=== PATIENT | female | born 1975 | race African-American/Black ===

== ENCOUNTER 2017-05-03 08:16 | Emergency (ER) | payer OTHER ==
[~2017-05-03] VITALS: Wt 86.5 kg
[~2017-05-03 08:16] MED LIST: ACET325T33 PO; CEPH-443 PO; HYDR-3498 PO; ONDA4TAB14 PO; SULF473O4 PO
[2017-05-03] MEDS ORDERED: ONDANSETRON 4 MG INJ IV STA (08:32)
[2017-05-03] MEDS ORDERED: SOD CHLORIDE 0.9% 1,000 ML IV STA (08:32)
[2017-05-03] MEDS ORDERED: KETOROLAC 30 MG INJ IV STA (08:32)
--- NOTE | 2017-05-03 09:12 | RADRPT ---
PROCEDURE: Right upper quadrant abdominal ultrasound. CLINICAL INDICATION: Abdominal pain TECHNIQUE: Hussein scale and color doppler ultrasound images of the right upper quadrant of the abdom en. COMPARISON: CT abdomen pelvis 07/05/2016 FINDINGS: Pancreas: Visualized portions appear of normal echogenicity without focal lesions. Liver: Morphology:Normal in size. Contour:Normal, no evidence of nodularity. Echogenicity: Normal. Focal lesions:None. Main portal vein: Patent with hepatopetal flow. Biliary System: Gallbladder wall: Normal thickness. Gallstones: None. Intrahepatic bile ducts: Normal caliber. Common bile duct diameter (mm): 3.3 Kidneys: Right length (cm) : 10.6 Right cortical thickness: Normal. Echogenicity: Normal. Hydronephrosis: None. Renal calculi: None. Focal lesions: None. Free fluid/ascites: None. Abdominal aorta: Normal caliber of the visualized segments. Other findings: None. IMPRESSION: Normal gallbladder without gallstones. Normal examination. RPTAT: AADD .Tyson Montano MD, MD Date Time Electronically viewed and signed by .Tyson Montano MD, on 05/03/2017 09:11 .B/
[2017-05-03 09:22] LABS: BASOPHILS % 0.8 % (0.0-2.0); EOSINOPHILS # 0.2 10^3/ul (0.0-0.5); EOSINOPHILS % 3.8 % (0.0-7.0); HEMOGLOBIN 10.7 g/dl (12.0-16.0); LYMPHOCYTES # 1.9 10^3/ul (0.8-2.9); LYMPHOCYTES % 40.2 % (15.0-51.0); MEAN CORPUSCULAR HEMOGLOBIN 23.9 pg (29.0-33.0); MEAN CORPUSCULAR HGB CONC 32.4 g/dl (32.0-37.0); MEAN CORPUSCULAR VOLUME 73.8 fl (82.0-101.0); MEAN PLATELET VOLUME 11.9 fl (7.4-10.4); MONOCYTE # 0.4 10^3/ul (0.3-0.9); MONOCYTES % 7.6 % (0.0-11.0); NEUTROPHIL # 2.3 10^3/ul (1.6-7.5); NEUTROPHILS % 47.4 % (39.0-77.0); PLATELET COUNT 198 10^3/UL (140-415); RED BLOOD COUNT 4.47 10^6/ul (4.20-5.40); RED CELL DISTRIBUTION WIDTH 15.5 % (11.5-14.5); WHITE BLOOD COUNT 4.8 10^3/ul (4.8-10.8)
[2017-05-03 09:34] LABS: ADD UMIC NO; UR ASCORBIC ACID NEGATIVE (NEGATIVE); UR BILIRUBIN (Dip) NEGATIVE (NEGATIVE); UR BLOOD (Dip) NEGATIVE (NEGATIVE); UR CLARITY CLEAR (CLEAR); UR COLOR COLORLESS (YELLOW); UR GLUCOSE (Dip) NEGATIVE (NEGATIVE); UR KETONES (Dip) NEGATIVE (NEGATIVE); UR LEUKOCYTE ESTERASE (Dip) NEGATIVE Leu/ul (NEGATIVE); UR NITRITE (Dip) NEGATIVE (NEGATIVE); UR SPECIFIC GRAVITY (Dip) 1.003 (1.003-1.030); UR TOTAL PROTEIN (Dip) NEGATIVE (NEGATIVE); UR UROBILINOGEN (Dip) NEGATIVE (NEGATIVE)
[2017-05-03 09:46] LABS: ALBUMIN 4.3 g/dl (3.3-4.9); ALBUMIN/GLOBULIN RATIO 1.34; BILIRUBIN,INDIRECT 0.4 mg/dl (0-1.1); BILIRUBIN,TOTAL 0.4 mg/dl (0.2-1.3); CALCIUM 9.5 mg/dl (8.4-10.2); CREATININE 0.87 mg/dl (0.44-1.00); POTASSIUM 3.8 mmol/L (3.5-5.1); TOTAL PROTEIN 7.5 g/dl (6.1-8.1)
[2017-05-03] MEDS ORDERED: morphine 4 MG/ML VIAL IV STA (10:17)
[2017-05-03] MEDS ORDERED: IOHEXOL 300MG/ML 150 ML BTL ONE (10:57)
[2017-05-03] MEDS ORDERED: SOD CHLORIDE 0.9% 100 ML ONE (10:57)
--- NOTE | 2017-05-03 10:59 | RADRPT ---
PROCEDURE: CT Abdomen and Pelvis with Contrast CLINICAL INDICATION: Mid abdominal pain TECHNIQUE: Transaxial images were obtained through the abdomen and pelvis on a multi-slice scanner following the intravenous administration of 100 ml of Omnipaque-300 contrast. No oral contrast had previously been given. Sagittal and coronal re-formations were subsequently reconstructed. One or more of the following dose reduction techniques were used: - Automated exposure control. - Adjustment of the mA and/or kV according to patient size. - Use of iterative reconstruction technique. Radiation dose: CTDIvol = 17.59 mGy; DLP = 992.85 mGy-cm. COMPARISON: 07/05/2016 FINDINGS: Lung bases: The visualized lung bases appear unremarkable. Liver: Normal in size and in attenuation. There is no focal lesion. The hepatic veins and portal vei ns appear patent. Gallbladder: The wall is not thickened. No radiopaque stones are identified. Bile ducts: The intra and extrahepatic bile ducts are normal in caliber. Pancreas: Appears normal with no mass or inflammation evident. Spleen: Normal in size with no focal lesion. Adrenals: Normal with no mass identified. Kidneys, ureters and bladder: The kidneys are unremarkable except for mild dilatation of to left mid pole calyces. No mass or nephrolith is identified. The ureters are not dilated and no ureterolith i s evident. The bladder appears unremarkable. Reproductive organs: The uterus is midline. There is a 3.6 x 2.4 x 2.3 cm right adnexal cyst. Phlebo liths are seen in the pelvis. Stomach, bowel, and mesentery: The stomach and bowel appear unremarkable without evidence of obstruc tion or inflammation. Appendix: A normal vermiform appendix is evident. Peritoneum: There is a trace of free intraperitoneal fluid seen in the cul-de-sac. No free air is id entified. Aorta: Normal in caliber with no aneurysmal dilatation. IVC: Unremarkable. Lymph nodes: No pathologically enlarged nodes are identified. Osseous structures: An 8 mm cyst is again seen within the lateral right supra-acetabular ilium. IMPRESSION: 1. Since the previous CT of 07/05/2016, two minimally dilated left mid pole renal calyces are again evident but there is no nephrolith, ureteral dilatation, ureterolith, or bladder pathology evident. 2. Again there is no evidence of bowel obstruction or inflammation with a normal-appearing vermifor m appendix. 3. Interval development of a 3.6 x 2.4 x 2.3 cm right adnexal cyst along with a trace amount of karen e intraperitoneal fluid seen in the cul-de-sac. No free air is identified. 4. An 8 mm cyst is again seen within the lateral right supra-acetabular ilium. 5. Otherwise, stable and unremarkable CT scan of the abdomen and pelvis. Physician Ria Date Time Electronically viewed and signed by Physician Ria on 05/03/2017 10:59 RH/
[2017-05-03] MEDS ORDERED: FAMO-96 PO (11:09)
[2017-05-03] MEDS ORDERED: HYDR-906 PO (11:09)
[2017-05-03 11:56] VITALS: BP 117/66; PULSE 61; RESP 18; TEMP 98.5
--- NOTE | 2017-06-03 19:32 | ERD ---
ER Documentation Chief Complaint Chief Complaint HAS AP HX OF CHOLELITHIASIS HPI 41-year-old female complaining of right upper quadrant pain 1 week. Patient denies chest pain or shortness of breath. Had one episode of vomiting. Denies changes in bowel movements or urination. Has not taken medications for symptoms. Denies back pain. Has a history of cholelithiasis in the past with no history of cholecystectomy. Patient describes pain as constant and stabbing- like in nature. ROS All systems reviewed and are negative except as per history of present illness. Medications Home Meds Active Scripts Ranitidine Hcl* (Zantac*) 150 Mg Tablet, 150 MG PO BID Y for EPIGASTRIC PAIN, # 30 TAB Prov:ROSIO PAINTER PA-C 05/18/17 Omeprazole* (Omeprazole*) 20 Mg Capsule.dr, 20 MG PO DAILY, #30 Prov:ROSIO PAINTER PA-C 05/18/17 Hydrocodone/Acetaminophen ([place] 5-325 Tablet) 1 Each Tablet, 1 TAB PO Q6H Y for PAIN, #7 TAB Prov:GENI RAMIREZ PA-C 05/03/17 Famotidine* (Pepcid*) 20 Mg Tablet, 20 MG PO BID for 4 Days, TAB Prov:GENI RAMIREZ PA-C 05/03/17 Acetaminophen* (Tylenol*) 325 Mg Tablet, 2 TAB PO Q6 Y for PAIN AND OR ELEVATED TEMP, #30 TAB Prov:SOLOMON REDDY PA-C 07/05/16 Ondansetron (Ondansetron Odt) 4 Mg Tab.rapdis, 4 MG PO Q6H Y for NAUSEA AND/OR VOMITING, #14 TAB Prov:SOLOMON REDDY PA-C 07/05/16 Hydrocodone Bit-Acetaminophen* ([place]*) 5-325 Mg Tab, 1 TAB PO Q6 Y for PAIN, # 15 TAB Prov:CHLOE KRAUSE 06/21/15 Cephalexin* (Keflex*) 500 Mg Capsule, 500 MG PO Q6 for 7 Days, CAP Prov:CHLOE KRAUSE 06/21/15 Trimethoprim/Sulfamethoxazole* (Bactrim* Susp) 1 Ml/1 Ml Susp, 5 ML PO BID for 7 Days, BOTTLE Prov:CHLOE KRAUSE 06/21/15 Allergies Allergies: Coded Allergies: No Known Allergy (Unverified , 05/18/17) PMhx/Soc History of Surgery: Yes ( X2 1994, 2000) Anesthesia Reaction: No Hx Neurological Disorder: No Hx Respiratory Disorders: No Hx Cardiac Disorders: No Hx Psychiatric Problems: No Hx Miscellaneous Medical Probl: No Hx Alcohol Use: No Hx Substance Use: No Hx Tobacco Use: No Smoking Status: Never smoker Physical Exam Physical Exam GENERAL: The patient is well-appearing, well-nourished, in no acute distress HEENT: Atraumatic. Conjunctivae are pink. Pupils equal, round, and reactive to light. There is no scleral icterus. Tympanic membranes clear bilaterally. Oropharynx clear. No nystagmus or photophobia. NECK: C-spine is soft and supple. There is no meningismus. There is no cervical lymphadenopathy. CHEST: Clear to auscultation bilaterally. There are no rales, wheezes or rhonchi. HEART: Regular rate and rhythm. No murmurs, clicks, rubs or gallops. No S3 or S4. ABDOMEN: Soft, nondistended. Tender to palpation in the right upper quadrant. No rebound tenderness. No megaly. Normoactive bowel sounds. SKIN: There is no apparent rash or petechiae. The skin is warm and dry. Results 24 hrs Laboratory Tests Test 05/03/17 09:05 05/03/17 09:09 Urine Color COLORLESS Urine Clarity CLEAR Urine pH 7.0 Urine Specific [place] 1.003 Urine Ketones NEGATIVEmg/dL Urine Nitrite NEGATIVEmg/dL Urine Bilirubin NEGATIVEmg/dL Urine Urobilinogen NEGATIVEmg/dL Urine Leukocyte Esterase NEGATIVELeu/ul Urine Hemoglobin NEGATIVEmg/dL Urine Glucose NEGATIVEmg/dL Urine Total Protein NEGATIVEmg/dl White Blood Count 4.810^3/ul Red Blood Count 4.4710^6/ul Hemoglobin 10.7g/dl Hematocrit 33.0% Mean Corpuscular Volume 73.8fl Mean Corpuscular Hemoglobin 23.9pg Mean Corpuscular Hemoglobin Concent 32.4g/dl Red Cell Distribution Width 15.5% Platelet Count 41961^3/UL Mean Platelet Volume 11.9fl Neutrophils % 47.4% Lymphocytes % 40.2% Monocytes % 7.6% Eosinophils % 3.8% Basophils % 0.8% Nucleated Red Blood Cells % 0.0/100WBC Neutrophils # 2.310^3/ul Lymphocytes # 1.910^3/ul Monocytes # 0.410^3/ul Eosinophils # 0.210^3/ul Basophils # 0.010^3/ul Nucleated Red Blood Cells # 0.010^3/ul Sodium Level 143mmol/L Potassium Level 3.8mmol/L Chloride Level 106mmol/L Carbon Dioxide Level 27mmol/L Anion Gap 14 Blood Urea Nitrogen 11mg/dl Creatinine 0.87mg/dl Glucose Level 86mg/dl Calcium Level 9.5mg/dl Total Bilirubin 0.4mg/dl Direct Bilirubin 0.00mg/dl Indirect Bilirubin 0.4mg/dl Aspartate Amino Transf (AST/SGOT) 27IU/L Alanine Aminotransferase (ALT/SGPT) 31IU/L Alkaline Phosphatase 65IU/L Total Protein 7.5g/dl Albumin 4.3g/dl Globulin 3.20g/dl Albumin/Globulin Ratio 1.34 Lipase 140U/L Current Medications Medications (Trade) Dose Ordered Sig/Babatunde Route PRN Reason Start Time Stop Time Status Last Admin Dose Admin Sodium Chloride (NS) 1,000 ml @ 1,000 mls/hr Q1H STAT IV 05/03/17 08:32 05/03/17 09:31 DC 05/03/17 09:15 Ondansetron HCl (Zofran Inj) 4 mg ONCE STAT IV 05/03/17 08:32 05/03/17 08:34 DC 05/03/17 09:22 Ketorolac Tromethamine (Toradol) 30 mg ONCE STAT IV 05/03/17 08:32 05/03/17 08:34 DC 05/03/17 09:22 Morphine Sulfate (morphine) 4 mg ONCE STAT IV 05/03/17 10:17 05/03/17 10:18 DC 05/03/17 10:33 IV Flush 10 ml 10 ml STK-MED ONCE .ROUTE 05/03/17 10:57 05/03/17 10:58 DC 05/03/17 11:00 Sodium Chloride (NS) 100 ml @ ud STK-MED ONCE .ROUTE 05/03/17 10:57 05/03/17 10:58 DC 05/03/17 11:00 Iohexol (Omnipaque 300mg/ ml) 150 ml [employer] ONCE .ROUTE 05/03/17 10:57 05/03/17 10:58 DC 05/03/17 11:01 Procedures/MDM DIAGNOSTIC IMAGING REPORT Patient: ENRIQUE CRAWLEY : 1975 Age: 41 Sex: F MR #: [id number] DOS: 05/03/17 0927 Ordering MD: RASHEL RAMIREZ PA-C Location: [facility] Room/Bed: PROCEDURE: CT Abdomen and Pelvis with Contrast CLINICAL INDICATION: Mid abdominal pain TECHNIQUE: Transaxial images were obtained through the abdomen and pelvis on a multi-slice scanner following the intravenous administration of 100 ml of Omnipaque-300 contrast. No oral contrast had previously been given. Sagittal and coronal re-formations were subsequently reconstructed. One or more of the following dose reduction techniques were used: - Automated exposure control. - Adjustment of the mA and/or kV according to patient size. - Use of iterative reconstruction technique. Radiation dose: CTDIvol = 17.59 mGy; DLP = 992.85 mGy-cm. COMPARISON: 07/05/2016 FINDINGS: Lung bases: The visualized lung bases appear unremarkable. Liver: Normal in size and in attenuation. There is no focal lesion. The hepatic veins and portal veins appear patent. Gallbladder: The wall is not thickened. No radiopaque stones are identified. Bile ducts: The intra and extrahepatic bile ducts are normal in caliber. Pancreas: Appears normal with no mass or inflammation evident. Spleen: Normal in size with no focal lesion. Adrenals: Normal with no mass identified. Kidneys, ureters and bladder: The kidneys are unremarkable except for mild dilatation of to left mid pole calyces. No mass or nephrolith is identified. The ureters are not dilated and no ureterolith is evident. The bladder appears unremarkable. Reproductive organs: The uterus is midline. There is a 3.6 x 2.4 x 2.3 cm right adnexal cyst. Phleboliths are seen in the pelvis. Stomach, bowel, and mesentery: The stomach and bowel appear unremarkable without evidence of obstruction or inflammation. Appendix: A normal vermiform appendix is evident. Peritoneum: There is a trace of free intraperitoneal fluid seen in the cul-de- sac. No free air is identified. Aorta: Normal in caliber with no aneurysmal dilatation. IVC: Unremarkable. Lymph nodes: No pathologically enlarged nodes are identified. Osseous structures: An 8 mm cyst is again seen within the lateral right supra- acetabular ilium. IMPRESSION: 1. Since the previous CT of 07/05/2016, two minimally dilated left mid pole renal calyces are again evident but there is no nephrolith, ureteral dilatation , ureterolith, or bladder pathology evident. 2. Again there is no evidence of bowel obstruction or inflammation with a normal-appearing vermiform appendix. 3. Interval development of a 3.6 x 2.4 x 2.3 cm right adnexal cyst along with a trace amount of free intraperitoneal fluid seen in the cul-de-sac. No free air is identified. 4. An 8 mm cyst is again seen within the lateral right supra-acetabular ilium. 5. Otherwise, stable and unremarkable CT scan of the abdomen and pelvis. DIAGNOSTIC IMAGING REPORT Patient: ENRIQUE CRAWLEY : 1975 Age: 41 Sex: F MR #: [id number] DOS: 05/03/17 0000 Ordering MD: RASHEL RAMIREZ PA-C Location: [facility] Room/Bed: PROCEDURE: Right upper quadrant abdominal ultrasound. CLINICAL INDICATION: Abdominal pain TECHNIQUE: Hussein scale and color doppler ultrasound images of the right upper quadrant of the abdomen. COMPARISON: CT abdomen pelvis 07/05/2016 FINDINGS: Pancreas: Visualized portions appear of normal echogenicity without focal lesions. Liver: Morphology:Normal in size. Contour:Normal, no evidence of nodularity. Echogenicity: Normal. Focal lesions:None. Main portal vein: Patent with hepatopetal flow. Biliary System: Gallbladder wall: Normal thickness. Gallstones: None. Intrahepatic bile ducts: Normal caliber. Common bile duct diameter (mm): 3.3 Kidneys: Right length (cm) : 10.6 Right cortical thickness: Normal. Echogenicity: Normal. Hydronephrosis: None. Renal calculi: None. Focal lesions: None. Free fluid/ascites: None. Abdominal aorta: Normal caliber of the visualized segments. Other findings: None. IMPRESSION: Normal gallbladder without gallstones. Normal examination. ER Course: 1 L of normal saline, morphine, Toradol and Zofran given in ED. MDM: 41-year-old female complaining of epigastric pain. I have low suspicion for choledocholithiasis, cholecystitis, cholangitis or pancreatitis. Patient's blood work is within normal limits and imaging is within normal limits. I have low suspicion for bowel obstruction, nephrolithiasis or septic stone. Patient' s urine and CT scan is within normal limits. I have low suspicion for appendicitis patient's CT scan is within normal limits. Patient has no pain in the pelvic region and I have low suspicion for ovarian torsion or ectopic . Patient will be discharged with pain medication and told to follow- up with primary care within 1-2 days for evaluation. Patient is discharged with strict ER precautions. All questions answered at discharge. Departure Diagnosis: Primary Impression: Epigastric pain Condition: Stable Patient Instructions: Epigastric Pain (Uncertain Cause) Referrals: CARA VINES MD Additional Instructions: FOLLOW UP WITH YOUR PRIMARY CARE PHYSICIAN TOMORROW.Return to this facility if you are not improving as expected. GENI RAMIREZ PA-C Jun 03, 2017 19:32
== END 2017-05-03 11:57 | disposition home or self-care (01) ==
LOC: FTE 08:16
DX: R10.13 Epigastric pain (principal)
CPT/HCPCS: 36415; 74177; 76705; 80053; 81003; 83690; 85025; 96374; 96375; J1885; J2270; J2405; J7030; Q9967; Z7502; Z7610

== ENCOUNTER 2017-05-18 16:57 | Emergency (ER) | payer OTHER ==
[~2017-05-18] VITALS: Wt 85.0 kg
[~2017-05-18 16:57] MED LIST changes: +FAMO-96 PO; +HYDR-906 PO
[2017-05-18] MEDS ORDERED: ONDANSETRON (ODT) 4 MG TAB ODT STA (18:56)
[2017-05-18] MEDS ORDERED: LIDOCAINE/MYLANTA 40 ML BTL PO STA (18:56)
[2017-05-18] MEDS ORDERED: FAMOTIDINE 20 MG TAB PO STA (18:56)
[2017-05-18 19:31] LABS: BASOPHILS % 0.2 % (0.0-2.0); EOSINOPHILS # 0.2 10^3/ul (0.0-0.5); EOSINOPHILS % 4.4 % (0.0-7.0); HEMATOCRIT 33.3 % (37.0-47.0); HEMOGLOBIN 10.8 g/dl (12.0-16.0); LYMPHOCYTES # 1.1 10^3/ul (0.8-2.9); LYMPHOCYTES % 26.2 % (15.0-51.0); MEAN CORPUSCULAR HEMOGLOBIN 24.1 pg (29.0-33.0); MEAN CORPUSCULAR HGB CONC 32.4 g/dl (32.0-37.0); MEAN CORPUSCULAR VOLUME 74.2 fl (82.0-101.0); MEAN PLATELET VOLUME 12.1 fl (7.4-10.4); MONOCYTE # 0.3 10^3/ul (0.3-0.9); MONOCYTES % 7.9 % (0.0-11.0); NEUTROPHIL # 2.6 10^3/ul (1.6-7.5); NEUTROPHILS % 61.1 % (39.0-77.0); PLATELET COUNT 204 10^3/UL (140-415); RED BLOOD COUNT 4.49 10^6/ul (4.20-5.40); RED CELL DISTRIBUTION WIDTH 15.1 % (11.5-14.5); WHITE BLOOD COUNT 4.3 10^3/ul (4.8-10.8)
[2017-05-18 19:40] LABS: ADD UMIC YES; UR ASCORBIC ACID NEGATIVE (NEGATIVE); UR BILIRUBIN (Dip) NEGATIVE (NEGATIVE); UR BLOOD (Dip) 1+ mg/dL (NEGATIVE); UR CLARITY CLEAR (CLEAR); UR COLOR YELLOW (YELLOW); UR GLUCOSE (Dip) NEGATIVE (NEGATIVE); UR KETONES (Dip) NEGATIVE (NEGATIVE); UR LEUKOCYTE ESTERASE (Dip) NEGATIVE Leu/ul (NEGATIVE); UR MUCUS MODERATE /HPF (NONE SEEN); UR NITRITE (Dip) NEGATIVE (NEGATIVE); UR RBC 14 /HPF (0-5); UR SPECIFIC GRAVITY (Dip) 1.026 (1.003-1.030); UR SQUAMOUS EPITHELIAL CELL FEW /HPF (FEW); UR TOTAL PROTEIN (Dip) 1+ mg/dl (NEGATIVE); UR UROBILINOGEN (Dip) 2+ mg/dL (NEGATIVE)
[2017-05-18 19:48] LABS: ALBUMIN 4.4 g/dl (3.3-4.9); ALBUMIN/GLOBULIN RATIO 1.41; BILIRUBIN,INDIRECT 0.2 mg/dl (0-1.1); BILIRUBIN,TOTAL 0.2 mg/dl (0.2-1.3); CALCIUM 9.3 mg/dl (8.4-10.2); CREATININE 0.96 mg/dl (0.44-1.00); POTASSIUM 3.4 mmol/L (3.5-5.1); TOTAL PROTEIN 7.5 g/dl (6.1-8.1)
[2017-05-18] MEDS ORDERED: RANI150T9 PO (20:18)
[2017-05-18] MEDS ORDERED: OMEP20CA16 PO (20:18)
--- NOTE | 2017-05-18 22:14 | ERD ---
ER Documentation Chief Complaint Chief Complaint ABD PAIN WITH N/V SINCE LAST NIGHT HPI Patient is a 41-year-old female with past medical history of epigastric pain presenting to the emergency department complaints of midepigastric pain radiating down and up ongoing intermittently since yesterday. She is also had multiple episodes of nausea with vomiting. She denies any blood or bile in the vomit. Patient reports eating spicy food daily including multiple [place] daily. She also reports symptoms are worse while laying down. She denies fevers, chills, diarrhea, constipation or other symptoms. ROS All systems reviewed and are negative except as per history of present illness. Medications Home Meds Active Scripts Ranitidine Hcl* (Zantac*) 150 Mg Tablet, 150 MG PO BID Y for EPIGASTRIC PAIN, # 30 TAB Prov:ROSIO PAINTER PA-C 05/18/17 Omeprazole* (Omeprazole*) 20 Mg Capsule.dr, 20 MG PO DAILY, #30 Prov:ROSIO PAINTER PA-C 05/18/17 Hydrocodone/Acetaminophen ([place]mm[place] 5-325 Tablet) 1 Each Tablet, 1 TAB PO Q6H Y for PAIN, #7 TAB Prov:GENI RAMIREZ PA-C 05/03/17 Famotidine* (Pepcid*) 20 Mg Tablet, 20 MG PO BID for 4 Days, TAB Prov:GENI RAMIREZ PA-C 05/03/17 Acetaminophen* (Tylenol*) 325 Mg Tablet, 2 TAB PO Q6 Y for PAIN AND OR ELEVATED TEMP, #30 TAB Prov:SOLOMON REDDY PA-C 07/05/16 Ondansetron (Ondansetron Odt) 4 Mg Tab.rapdis, 4 MG PO Q6H Y for NAUSEA AND/OR VOMITING, #14 TAB Prov:SOLOMON REDDY PA-C 07/05/16 Hydrocodone Bit-Acetaminophen* (Emmett*) 5-325 Mg Tab, 1 TAB PO Q6 Y for PAIN, # 15 TAB Prov:CHLOE KRAUSE 06/21/15 Cephalexin* (Keflex*) 500 Mg Capsule, 500 MG PO Q6 for 7 Days, CAP Prov:CHLOE KRAUSE 06/21/15 Trimethoprim/Sulfamethoxazole* (Bactrim* Susp) 1 Ml/1 Ml Susp, 5 ML PO BID for 7 Days, BOTTLE Prov:CHLOE KRAUSE 06/21/15 Allergies Allergies: Coded Allergies: No Known Allergy (Unverified , 05/18/17) PMhx/Soc History of Surgery: Yes ( X2 1994, 2000) Anesthesia Reaction: No Hx Neurological Disorder: No Hx Respiratory Disorders: No Hx Cardiac Disorders: No Hx Psychiatric Problems: No Hx Miscellaneous Medical Probl: No Hx Alcohol Use: No Hx Substance Use: No Hx Tobacco Use: No Physical Exam Vitals Vital Signs Date Time Temp Pulse Resp B/P Pulse Ox O2 Delivery O2 Flow Rate FiO2 05/18/17 17:05 98.1 72 18 120/70 99 Physical Exam Const: Nontoxic, well-appearing female. Mild distress secondary to pain. Head: Atraumatic Eyes: Normal Conjunctiva ENT: Normal External Ears, Nose and Mouth.mus. Resp: Clear to auscultation bilaterally Cardio: Regular rate and rhythm, no murmurs Abd: Soft, reproducible midepigastric tenderness palpation, no McBurney's point tenderness, no rebound tenderness or guarding, non distended. Normal bowel sounds Skin: No petechiae or rashes Ext: No cyanosis, or edema Neur: Awake and alert Psych: Normal Mood and Affect Result Diagram: 05/18/17190905/18/171909 Results 24 hrs Laboratory Tests Test 05/18/17 19:00 05/18/17 19:10 Urine Color YELLOW Urine Clarity CLEAR Urine pH 5.0 Urine Specific [place] 1.026 Urine Ketones NEGATIVEmg/dL Urine Nitrite NEGATIVEmg/dL Urine Bilirubin NEGATIVEmg/dL Urine Urobilinogen 2+mg/dL Urine Leukocyte Esterase NEGATIVELeu/ul Urine Microscopic RBC 14/HPF Urine Microscopic WBC 1/HPF Urine Squamous Epithelial Cells FEW/HPF Urine Mucus MODERATE/HPF Urine Hemoglobin 1+mg/dL Urine Glucose NEGATIVEmg/dL Urine Total Protein 1+mg/dl White Blood Count 4.310^3/ul Red Blood Count 4.4910^6/ul Hemoglobin 10.8g/dl Hematocrit 33.3% Mean Corpuscular Volume 74.2fl Mean Corpuscular Hemoglobin 24.1pg Mean Corpuscular Hemoglobin Concent 32.4g/dl Red Cell Distribution Width 15.1% Platelet Count 16853^3/UL Mean Platelet Volume 12.1fl Neutrophils % 61.1% Lymphocytes % 26.2% Monocytes % 7.9% Eosinophils % 4.4% Basophils % 0.2% Nucleated Red Blood Cells % 0.0/100WBC Neutrophils # 2.610^3/ul Lymphocytes # 1.110^3/ul Monocytes # 0.310^3/ul Eosinophils # 0.210^3/ul Basophils # 0.010^3/ul Nucleated Red Blood Cells # 0.010^3/ul Sodium Level 143mmol/L Potassium Level 3.4mmol/L Chloride Level 105mmol/L Carbon Dioxide Level 27mmol/L Anion Gap 14 Blood Urea Nitrogen 8mg/dl Creatinine 0.96mg/dl Glucose Level 97mg/dl Calcium Level 9.3mg/dl Total Bilirubin 0.2mg/dl Direct Bilirubin 0.00mg/dl Indirect Bilirubin 0.2mg/dl Aspartate Amino Transf (AST/SGOT) 30IU/L Alanine Aminotransferase (ALT/SGPT) 33IU/L Alkaline Phosphatase 72IU/L Total Protein 7.5g/dl Albumin 4.4g/dl Globulin 3.10g/dl Albumin/Globulin Ratio 1.41 Lipase 337U/L Current Medications Medications (Trade) Dose Ordered Sig/Babatunde Route PRN Reason Start Time Stop Time Status Last Admin Dose Admin Famotidine (Pepcid) 20 mg ONCE STAT PO 05/18/17 18:56 05/18/17 19:00 DC 05/18/17 19:08 Miscellaneous Medication (Gi Cocktail (2)) 40 ml ONCE STAT PO 05/18/17 18:56 05/18/17 19:00 DC 05/18/17 19:08 Ondansetron HCl (Zofran Odt) 4 mg ONCE STAT ODT 05/18/17 18:56 05/18/17 19:00 DC 05/18/17 19:08 Procedures/MDM 41-year-old female presenting to the emergency department with complaints of midepigastric pain. There was some midepigastric tenderness to palpation. No rebound tenderness or guarding. No McBurney's point tenderness. The patient was given GI cocktail, p.o. ranitidine, ODT Zofran in the department she was feeling significantly improved on reevaluation. Lab studies were ordered. Review of CBC showed mild anemia at 10.8, this may be supplemented in the diet, slight leukopenia 4.3, likely incidental finding which is not significant. Chemistry panel was within normal limits. Lipase slightly elevated at 337, not significant to justify admission or further workup, however the patient was questioned about her alcohol intake. She states she drinks about 1 bottle of alcohol every weekend and she also drinks wine during the week. Urinalysis is not concerning for urinary tract infection. Because patient's symptoms are significantly improved in the department, and she had recent workup with imaging less than 1 month ago which was not concerning for any acute emergencies , and because her chemistry panel was unremarkable, she was stable for discharge with diagnosis being likely GERD. She was given prescriptions for omeprazole and ranitidine. She was in agreement with the discharge plan and diagnosis. She is to follow-up with her primary care physician and GI specialist. No evidence of life-threatening pathology at time of discharge. Pt/family in agreement with discharge plan/diagnosis. Pt/family advised to return immediately with any new or worsening symptoms. Follow-up with primary care physician within the next 1-2 days. Disclaimer: Inadvertent spelling and grammatical errors are likely due to EHR/ dictation software use and do not reflect on the overall quality of patient care. Also, please note that the electronic time recorded on this note does not necessarily reflect the actual time of the patient encounter. Departure Diagnosis: Primary Impression: Epigastric pain Condition: Fair Patient Instructions: Gerd (Adult), Epigastric Pain (Uncertain Cause) Referrals: THIEN GANDHI MD, RON DESIGAN, GNANA MD EPHRAIM,MANUEL HERNÁNDEZ MD Additional Instructions: Follow up with your PCP within the next 1-3 days for a repeat evaluation. If you require a referral to a specialist, your Primary Care Provider may be able to provide this for you. In most patient cases, a referral is not required. If you have further questions regarding this matter, please ask your Primary Care Provider. Return the the emergency department immediately if symptoms worsen or change. If you have any questions regarding medications, ask your pharmacist or us before you leave. If any adverse reactions, occur while taking your medications, discontinue the treatment and return to the emergency department immediately. If any new or worsening symptoms, uncontrolled fevers, or other unexplained symptoms occur, return to the emergency department immediately. Take your medications as directed, and complete the entire course of treatment. ROSIO PAINTER PA-C May 18, 2017 22:14
== END 2017-05-18 20:36 | disposition home or self-care (01) ==
LOC: FTE 16:57
DX: R10.13 Epigastric pain (principal)
CPT/HCPCS: 36415; 80053; 81001; 83690; 85025; Z7502; Z7610; 99283

== ENCOUNTER 2018-05-31 12:33 | Day surgery (SDC) | END 2018-05-31 16:04 | disposition home or self-care (01) ==

== ENCOUNTER 2018-08-05 13:39 | Emergency (ER) | payer OTHER ==
[~2018-08-05] VITALS: Ht 167.6 cm; Wt 88.9 kg
[~2018-08-05 13:39] MED LIST changes: -ACET325T33 PO; -CEPH-443 PO; -FAMO-96 PO; -HYDR-3498 PO; -HYDR-906 PO; -ONDA4TAB14 PO; -SULF473O4 PO; +no home meds
[2018-08-05 13:41] VITALS: Ht 167.6 cm; Wt 88.9 kg
[2018-08-05 14:50] VITALS: BP 132/82; PULSE 90; RESP 20
--- NOTE | 2018-08-05 14:58 | ERD ---
ER Documentation Chief Complaint Chief Complaint Complains of chest pain, palp and SOB with possible anxiety since today HPI Patient is a 42-year-old female with no medical problems who presents with a "panic attack". She said that for 1.5 months she has had left-sided lymph node swelling and left-sided ear pain. She was given eardrops and the pain in the ear got better but the lymph node has not gone down. She has an appointment with ear nose and throat scheduled in 2 weeks but she could not wait that long. She has nausea. She then had a panic attack and felt chest tightness. She does have a primary doctor. ROS All systems reviewed and are negative except as per history of present illness. Medications Home Meds Reported Medications [no home meds] No Conflict Check 05/31/18 Allergies Allergies: Coded Allergies: No Known Allergy (Unverified , 05/31/18) PMhx/Soc History of Surgery: Yes (2 cesareans) Anesthesia Reaction: No Hx Neurological Disorder: No Hx Respiratory Disorders: No Hx Cardiac Disorders: No Hx Psychiatric Problems: No Hx Miscellaneous Medical Probl: No Hx Alcohol Use: Yes (occ) Hx Substance Use: No Hx Tobacco Use: No Smoking Status: Former smoker FmHx Family History: No diabetes Physical Exam Vitals Vital Signs Date Temp Pulse Resp B/P (MAP) Pulse Ox O2 O2 Flow FiO2 Time Delivery Rate 08/05/18 98.7 90 20 132/82 100 Room Air 14:50 (99) 08/05/18 98.7 91 20 147/76 100 13:41 (99) Physical Exam Const: No acute distress Head: Atraumatic Eyes: Normal Conjunctiva ENT: Normal External Ears, Nose and Mouth. Neck: Small less than 1 cm lymph node in the left cervical chain without fluctuance Resp: Clear to auscultation bilaterally Cardio: Regular rate and rhythm, no murmurs Abd: Soft, non tender, non distended. Normal bowel sounds Skin: No petechiae or rashes Back: No midline or flank tenderness Ext: No cyanosis, or edema Neur: Awake and alert Psych: Normal Mood and Affect Procedures/MDM EKG read by me: Rate/Rhythm: Regular rate and rhythm at a rate of 81 Intervals: Normal Impression: No evidence of ischemia or arrhythmia Smoking Cessation Therapy: Pt. was lectured for greater than 3 minutes on the health risks of continued smoking and the benefits of cessation. Patient is a 42-year-old female who presents with left-sided lymph node swelling. The patient is otherwise well-appearing without any signs of airway difficulty. The patient will be discharged. EKG was normal and I doubt acute coronary syndrome, pneumonia, pneumothorax, pulmonary embolism, or aortic dissection. The patient will be discharged and can follow-up with the primary doctor as well as ENT for follow-up. Departure Diagnosis: Primary Impression: Lymphadenopathy Additional Impression: Panic attack Condition: Fair Patient Instructions: Cervical Adenitis, No Antibiotic, Panic Attack Referrals: Dr. Vasquez Additional Instructions: Call your primary care doctor TOMORROW for an appointment during the next 1 WEEK.Tell the service secretary that you were referred from this facility.See the doctor sooner or return here if your condition worsens before your appointment time. KRISTINA MCCARTHY MD Aug 05, 2018 14:58
== END 2018-08-05 14:49 | disposition home or self-care (01) ==
LOC: E/R 13:39
DX: R59.1 Generalized enlarged lymph nodes (principal); F41.0 Panic disorder [episodic paroxysmal anxiety]; Z87.891 Personal history of nicotine dependence

== ENCOUNTER 2018-12-12 08:33 | Emergency (ER) | payer OTHER ==
[~2018-12-12] VITALS: Ht 165.1 cm; Wt 93.0 kg
[2018-12-12 08:44] VITALS: Ht 165.1 cm; Wt 93.0 kg
[2018-12-12] MEDS ORDERED: KETOROLAC 60 MG INJ IM STA (09:13)
[2018-12-12] MEDS ORDERED: NAPR-985 PO (10:16)
[2018-12-12] MEDS ORDERED: CYCL10TA7 PO (10:16)
[2018-12-12 10:33] VITALS: BP 115/67; PULSE 69; RESP 18
--- NOTE | 2018-12-12 19:20 | ERD ---
ER Documentation Chief Complaint Chief Complaint BACK PAIN STARTED MIDDLE OF THE NIGHT HPI 43-year-old female patient with no significant past medical history presents ED complaining of mid back pain that started last night. Describes as achy and rates it a 7/10. Denies any dysuria, urgency, frequency, hematuria. Patient does have a history of a bulging disc. Denies any fever, chills, nausea, vomiting, diarrhea, neck stiffness. Denies any saddle anesthesia, urine or bowel incontinence. ROS All systems reviewed and are negative except as per history of present illness. Medications Home Meds Active Scripts Cyclobenzaprine Hcl* (Cyclobenzaprine Hcl*) 10 Mg Tablet, 10 MG PO TID, #15 TAB Prov:LOLIS JONES PA-C 12/12/18 Naproxen* (Naprosyn*) 500 Mg Tablet, 500 MG PO BID PRN for PAIN AND/OR INFLAMMATION, #30 TAB Prov:LOLIS JONES PA-C 12/12/18 Reported Medications [no home meds] No Conflict Check 05/31/18 Allergies Allergies: Coded Allergies: No Known Allergy (Unverified , 05/31/18) PMhx/Soc Medical and Surgical Hx: pt denies Medical Hx History of Surgery: Yes (2 cesareans) Anesthesia Reaction: No Hx Neurological Disorder: No Hx Respiratory Disorders: No Hx Cardiac Disorders: No Hx Psychiatric Problems: No Hx Miscellaneous Medical Probl: No Hx Alcohol Use: Yes (occ) Hx Substance Use: No Hx Tobacco Use: Yes Smoking Status: Former smoker FmHx Family History: No diabetes, No coronary disease Physical Exam Vitals Vital Signs Date Temp Pulse Resp B/P (MAP) Pulse Ox O2 O2 Flow FiO2 Time Delivery Rate 12/12/18 69 18 115/67 99 Room Air 10:33 (83) 12/12/18 98.2 80 18 160/83 100 08:44 (108) Physical Exam Const: Kym-ojr-wgcoojrli, well-nourished. In no acute distress. Head: Atraumatic, normocephalic Eyes: Normal Conjunctiva without injection. No purulent discharge. ENT: Normal external ear, nose. Moist oropharynx without tonsillar exudates. Non-erythematous pharynx. Uvula midline. No drooling. No trismus. Neck: No cervical midline tenderness. Full range of motion. No meningismus. No cervical lymphadenopathy. No JVD. Resp: Clear to auscultation bilaterally. No wheezing, rhonchi, rales, or crackles. No accessory muscle use. No retractions. Cardio: Regular rate and rhythm. No murmurs, rubs or gallops. Abd: Soft, nontender, non distended. Normal bowel sounds. No palpable masses. No rebound tenderness. No guarding. Negative McBurney's point. Negative psoas sign. Negative obturator sign. Skin: No petechiae or rashes Back: No midline tenderness. No CVA tenderness. Ext: No cyanosis, or edema. Neur: Awake and alert. Normal gait. Normal coordination. Psych: Normal Mood and Affect Results 24 hrs Laboratory Tests Test 12/12/18 09:26 POC Beta HCG, Qualitative NEGATIVE Current Medications Medications Dose Sig/Babatunde Start Time Status Last (Trade) Ordered Route PRN Stop Time Admin Dose Reason Admin Ketorolac 60 mg ONCE STAT 12/12/18 DC 12/12/18 Tromethamine IM 09:13 09:31 (Toradol) 12/12/18 09:16 Procedures/MDM 43-year-old female with past medical history of bulging disc presents to the ED complaining of mid back pain. Patient is afebrile and nontoxic-appearing. Patient's blood pressure 160/83. Blood Pressure Assessment: Patient's blood pressure was elevated (>120/80) but appears stable without evidence of hyperte nsion emergency or urgency. The patient was counseled about the risks of hypertension and urged to pursue outpatient monitoring and therapy within a week with their primary care physician. IMPRESSION: No evidence of acute cardiopulmonary disease. Patient's pain is likely secondary to musculoskeletal pain. Low suspicion for acute myocardial infarction, pneumothorax, pericarditis, myocarditis, endocarditis, pneumonia, cardiac tamponade, pulmonary embolism, pleural effusion, AAA, aortic dissection, Boerhaave's syndrome, cardiac dysrhythmias,meningitis, intracranial bleed, seizure, stroke, TIA or other emergent conditions. Patient is ambulating here in the ED without difficulty. Denies saddle anesthesia, numbness or tingling, urine or bowel incontinence, w eakness. Low suspicion for cauda equina syndrome, cord compression, nephrolithiasis, aortic aneurysm, aortic dissection, epidural abscess, spinal hematoma, malignancy, pyelonephritis, or other emergent conditions. Diagnosis: Back Pain Discharge medications: Naproxen, Flexeril Follow up with primary care physician in 1-2 days. Instructed patient to return to the ED sooner for any worsening symptoms. Patient's questions were answered. Patient is hemodynamically stable. Patient understood and agreed with discharge plan. Patient discharged stable. Disclaimer: Inadvertent spelling and grammatical errors are likely due to EHR/dictation software use and do not reflect on the overall quality of patient care. Also, please note that the electronic time recorded on this note does not necessarily reflect the actual time of the patient encounter. Departure Diagnosis: Primary Impression: Back pain Back pain location: back pain in unspecified location Chronicity: unspecified Back pain laterality: unspecified Qualified Codes: M54.9 - Dorsalgia, unspecified Condition: Stable Patient Instructions: Back Pain (Acute Or Chronic) Referrals: [facility] YOU HAVE RECEIVED A MEDICAL SCREENING EXAM AND THE RESULTS INDICATE THAT YOU DO NOT HAVE A CONDITION THAT REQUIRES URGENT TREATMENT IN THE EMERGENCY DEPARTMENT. FURTHER EVALUATION AND TREATMENT OF YOUR CONDITION CAN WAIT UNTIL YOU ARE SEEN IN YOUR DOCTORS OFFICE WITHIN THE NEXT 1-2 DAYS. IT IS YOUR RESPONSIBILITY TO MAKE AN APPOINTMENT FOR FOLOW-UP CARE. IF YOU HAVE A PRIMARY DOCTOR --you should call your primary doctor and schedule an appointment IF YOU DO NOT HAVE A PRIMARY DOCTOR YOU CAN CALL OUR PHYSICIAN REFERRAL HOTLINE AT IF YOU CAN NOT AFFORD TO SEE A PHYSICIAN YOU CAN CHOSE FROM THE FOLLOWING [facility] [address] [facility]. [facility] [address] [facility] [address] [facility] [address] [facility]. [facility] [address] [facility]. [facility]. [address] [facility]. [facility] YOU HAVE RECEIVED A MEDICAL SCREENING EXAM AND THE RESULTS INDICATE THAT YOU DO NOT HAVE A CONDITION THAT REQUIRES URGENT TREATMENT IN THE EMERGENCY DEPARTMENT. FURTHER EVALUATION AND TREATMENT OF YOUR CONDITION CAN WAIT UNTIL YOU ARE SEEN IN YOUR DOCTORS OFFICE WITHIN THE NEXT 1-2 DAYS. IT IS YOUR RESPONSIBILITY TO MAKE AN APPOINTMENT FOR FOLOW-UP CARE. IF YOU HAVE A PRIMARY DOCTOR --you should call your primary doctor and schedule and appointment IF YOU DO NOT HAVE A PRIMARY DOCTOR YOU CAN CALL OUR PHYSICIAN REFERRAL HOTLINE AT . IF YOU CAN NOT AFFORD TO SEE A PHYSICIAN YOU CAN CHOSE FROM THE FOLLOWING [facility] INSTITUTIONS: [facility] [address] [place] [address] [facility] [address] [place], [place] [id number] [place] [address] [address] [place] [address] [facility] URGENT CARE/SPECIALTIES Additional Instructions: Call your primary care doctor TOMORROW for an appointment during the next 2-3 days.See the doctor sooner or return here if your condition worsens before your appointment time. LOLIS JONES PA-C December 12, 2018 19:20
== END 2018-12-12 10:34 | disposition home or self-care (01) ==
LOC: FTE 08:33
DX: M54.9 Dorsalgia, unspecified (principal); Z87.891 Personal history of nicotine dependence
CPT/HCPCS: 71045; 81025; 96372; J1885; Z7502

== ENCOUNTER 2019-02-03 16:49 | Emergency (ER) | payer SELFPAY ==
[~2019-02-03] VITALS: Ht 165.1 cm; Wt 96.8 kg
[~2019-02-03 16:49] MED LIST changes: +CYCL10TA7 PO; +NAPR-985 PO
[2019-02-03 16:57] VITALS: BP 142/75; PULSE 88; RESP 18; Ht 165.1 cm; Wt 96.8 kg
== END 2019-02-04 02:59 | disposition left against medical advice (07) ==
LOC: E/R 16:49
DX: Z53.21 Procedure and treatment not carried out due to patient leaving prior to being seen by health care provider (principal)
CPT/HCPCS: 93005